=== PATIENT | female | born 1980 | race Caucasian/White ===

== ENCOUNTER 2017-07-07 12:50 | Outpatient (CLI) | payer OTHER | END 2017-07-07 14:35 | disposition home or self-care (01) | LOC: MAMO-SONO 12:50 | DX: D50.0 Iron deficiency anemia secondary to blood loss (chronic) (principal); N80.0 Endometriosis of uterus; D68.8 Other specified coagulation defects; D51.3 Other dietary vitamin B12 deficiency anemia; D51.1 Vitamin B12 deficiency anemia due to selective vitamin B12 malabsorption with proteinuria; E04.0 Nontoxic diffuse goiter; Z12.31 Encounter for screening mammogram for malignant neoplasm of breast ==

== ENCOUNTER 2017-07-19 08:22 | Outpatient (CLI) | payer OTHER | END 2017-07-19 08:48 | disposition home or self-care (01) | LOC: LAB 08:22 | DX: D50.0 Iron deficiency anemia secondary to blood loss (chronic) (principal); N80.0 Endometriosis of uterus; D68.8 Other specified coagulation defects; D51.3 Other dietary vitamin B12 deficiency anemia; D51.1 Vitamin B12 deficiency anemia due to selective vitamin B12 malabsorption with proteinuria; E04.0 Nontoxic diffuse goiter; D51.8 Other vitamin B12 deficiency anemias; D51.0 Vitamin B12 deficiency anemia due to intrinsic factor deficiency; D55.0 Anemia due to glucose-6-phosphate dehydrogenase [G6PD] deficiency; E03.8 Other specified hypothyroidism; E06.3 Autoimmune thyroiditis; E04.2 Nontoxic multinodular goiter; N80.5 Endometriosis of intestine; R19.4 Change in bowel habit; R10.84 Generalized abdominal pain ==

== ENCOUNTER 2017-09-26 10:05 | Outpatient (CLI) | payer OTHER | END 2017-09-26 10:42 | disposition home or self-care (01) | LOC: LAB 10:05 | DX: D50.0 Iron deficiency anemia secondary to blood loss (chronic) (principal); D51.3 Other dietary vitamin B12 deficiency anemia; D51.1 Vitamin B12 deficiency anemia due to selective vitamin B12 malabsorption with proteinuria; N80.0 Endometriosis of uterus; D68.8 Other specified coagulation defects; E04.0 Nontoxic diffuse goiter; D50.8 Other iron deficiency anemias; D68.0 Von Willebrand disease; R19.5 Other fecal abnormalities; R19.7 Diarrhea, unspecified ==

== ENCOUNTER 2018-01-15 07:00 | Day surgery (SDC) | payer OTHER ==
[~2018-01-15] VITALS: Ht 167.6 cm; Wt 86.2 kg
[~2018-01-15 07:00] MED LIST: AMLODIPINE BESYL5 MG PO
[2018-01-16] MEDS ORDERED: DOCUSATE SODIU100 MG PO (08:48)
[2018-01-16] MEDS ORDERED: ULTRAM50 MG PO (08:48)
== END 2018-01-16 08:00 | disposition home or self-care (01) ==
LOC: CIR.AMB 07:00 → SURG 13:15 → EDSTATUS 13:15 → SURG 15:30 → O/R 16:59 → CIR.AMB 01-16 08:00 → SURG 01-16 13:41 → O/R 01-16 13:41
DX: D25.1 Intramural leiomyoma of uterus (principal); N80.0 Endometriosis of uterus; N72 Inflammatory disease of cervix uteri; I10 Essential (primary) hypertension